=== PATIENT | female | born 1930 | race Caucasian/White ===

== ENCOUNTER 2019-01-01 16:30 | Inpatient (IN) | payer OTHER ==
[~2019-01-01] VITALS: Ht 157.5 cm; Wt 120.4 kg
[2019-01-01 17:29] LABS: BASOPHILS ABSOLUTE AUTO 0.02 K/mm3 (0.00-0.23); BASOPHILS PERCENT AUTO 0 % (0-2); EOSINOPHILS ABSOLUTE AUTO 0.01 K/mm3 (0.00-0.68); EOSINOPHILS PERCENT AUTO 0 % (0-6); Hematocrit 41.8 % (33.0-51.0); Hemoglobin 13.6 g/dL (11.5-16.0); IMMATURE GRAN ABSOLUTE AUTO 0.03 K/mm3 (0.00-0.10); IMMATURE GRAN PERCENT AUTO 0 % (0-1); LYMPHOCYTES ABSOLUTE AUTO 1.17 K/mm3 (0.84-5.20); LYMPHOCYTES PERCENT AUTO 14 % (21-46); MONOCYTES ABSOLUTE AUTO 0.58 K/mm3 (0.16-1.47); MONOCYTES PERCENT AUTO 7 % (4-13); Mean Corpuscular HGB 31.2 pg (26.0-34.0); Mean Corpuscular HGB Conc 32.5 g/dL (31.5-36.5); Mean Corpuscular Volume 96 fL (80-100); Mean Platelet Volume 11.5 fL (9.1-12.4); NEUTROPHILS PERCENT AUTO 78 % (41-73); Platelet Count 146 K/mm3 (150-400); RDW Coefficient Variation 12.6 % (11.7-14.2); RDW Standard Deviation 44.9 fL (35.1-46.3); Red Blood Cell Count 4.36 M/mm3 (3.80-5.20); White Blood Cell Count 8.21 K/mm3 (4.00-11.30)
[2019-01-01 17:33] LABS: Source, Urine Catheter
[2019-01-01 17:38] LABS: Appearance, Urine Clear (Clear); Bilirubin, Urine Neg (Neg); Blood, Urine 3+ (Neg); Color, Urine Yellow (P-Yellow); Glucose Qualitative, Urine Neg (Neg); Ketones, Urine 2+ (Neg); Leukocyte Esterase, Urine Neg (Neg); Nitrite, Urine Neg (Neg); Protein, Urine Neg (Neg); Specific Gravity, Urine 1.025 (1.003-1.022); Urobilinogen, Urine NORM (Normal)
[2019-01-01 17:39] LABS: Alanine Aminotransfer (ALT/SGP 13 U/L (12-78); Albumin, Blood 3.4 g/dL (3.4-5.0); Albumin/Globulin Ratio 0.9 (0.8-1.8); Alk Phos 66 U/L (50-136); Anion Gap 9 mmol/L (6-16); Aspartate Aminotrans (AST/SGOT 17 U/L (12-37); Bilirubin, Total 0.7 mg/dL (0.1-1.0); Blood Urea Nitrogen 26 mg/dL (8-24); CO2, Blood 25 mmol/L (21-32); Calcium, Blood 9.9 mg/dL (8.5-10.1); Chloride, Blood 106 mmol/L (98-108); Ethanol (Alcohol), Blood, Med <3 mg/dL; Globulin, Blood 3.9 g/dL (2.2-4.0); Glomerular Filtration Rate 41 (60-); Glucose, Blood 107 mg/dL (70-99); Potassium, Blood 3.7 mmol/L (3.5-5.5); Sodium, Blood 140 mmol/L (136-145); Total Protein, Blood 7.3 g/dL (6.4-8.2)
[2019-01-01 17:56] LABS: Bacteria Not Seen /hpf; Squamous Epithelial Cells Rare /hpf (Few); White Blood Cells, Urine 0-2 /hpf (0-5)
[2019-01-01 17:59] LABS: Influenza A Negative (NEGATIVE); Influenza B Negative (NEGATIVE)
--- NOTE | 2019-01-01 22:14 | NUR ---
PT ARRIVES TO ROOM ICU 8 VIA GURNEY FROM ER, 3 ER STAFF ARE NOTED ACCOMPANYING PATIENT TO ROOM SECONDARY TO INCREASED AGITATION, PT IS NOTED IMPULSIVELY ROLLING SIDE TO SIDE ON GURNEY, ATTEMPTS TO PHYSICAL SECURITY SPECIALIST MANN TUBING, ATTEMPTS TO REMOVE NASAL CANNULA WHEN APPLIED FOR SATS HIGH 80S, DOES NOT FOLLOW DIRECTIONS, DOES NOT COOPERATE WITH REDIRECTION. ROLLS SIDE TO SIDE IN BED GETTING TANGLED IN MONITORING CORDS AND OXYGEN TUBING, ORDERS OBTAINED FOR BILATERAL WRIST RESTRAINTS AND PRECEDEX GTT. LUNGS ARE CLEAR THROUGHOUT, RESP RATE HIGH 20S LOW 30S, SATS MID 90S WITH OXYGEN AT 2 L/MIN VIA NC. HRR, SINUS TACH NOTED ON MONITOR, PT IS HYPERTENSIVE WITH SBP NEAR 200 AND DBP NEAR 110 HOWEVER PT DOES NOT RELAX ARMS DURING BP ASSESSMENT AND IS ATTEMPTING TO CLIMB UP OOB OVER BED RAILS AT TIMES, NO EDEMA IS NOTED, BRISK CAP REFILL, BILAT FEET PINK, HANDS ARE PALE. ABD WITH HYPOACTIVE BOWEL TONES, SOFT, NO GRIMACING IS NOTED WITH PALPATION. MANN CATH IN PLACE DRAINING CLEAR YELLOW URINE TO GRAVITY. IV ACCESS TO BILAT UPPER ARMS NEAR SHOULDERS, 18 TO LEFT, 20 TO RIGHT.
[2019-01-02 01:02] LABS: Adenovirus Not Detected (NOT DETECT); Bordetella pertussis Not Detected (NOT DETECT); Chlamydophila pneumoniae Not Detected (NOT DETECT); Coronavirus 229E Not Detected (NOT DETECT); Coronavirus HKU1 Not Detected (NOT DETECT); Coronavirus NL63 Not Detected (NOT DETECT); Coronavirus OC43 Not Detected (NOT DETECT); Human Metapneumovirus Not Detected (NOT DETECT); Human Rhinovirus/Enterovirus Not Detected (NOT DETECT); Influenza A Not Detected (NOT DETECT); Influenza A/2009-H1 Not Detected (NOT DETECT); Influenza A/H1 Not Detected (NOT DETECT); Influenza A/H3 Not Detected (NOT DETECT); Influenza B Not Detected (NOT DETECT); Mycoplasma pneumoniae Not Detected (NOT DETECT); Parainfluenza Virus 1 Not Detected (NOT DETECT); Parainfluenza Virus 2 Not Detected (NOT DETECT); Parainfluenza Virus 3 Not Detected (NOT DETECT); Parainfluenza Virus 4 Not Detected (NOT DETECT); Respiratory Syncytial Virus Not Detected (NOT DETECT)
[2019-01-02 04:02] LABS: Albumin, Blood 2.8 g/dL (3.4-5.0); Albumin/Globulin Ratio 0.8 (0.8-1.8); Bilirubin, Total 0.7 mg/dL (0.1-1.0); Bun/Creatinine Ratio 16.5 (12.0-20.0); Calcium, Blood 8.6 mg/dL (8.5-10.1); Creatinine, Blood 1.33 mg/dL (0.40-1.00); Globulin, Blood 3.3 g/dL (2.2-4.0); Potassium, Blood 3.6 mmol/L (3.5-5.5); Total Protein, Blood 6.1 g/dL (6.4-8.2)
[2019-01-02 04:09] LABS: Hematocrit 38.1 % (33.0-51.0); Hemoglobin 12.1 g/dL (11.5-16.0); Mean Corpuscular HGB 31.6 pg (26.0-34.0); Mean Corpuscular HGB Conc 31.8 g/dL (31.5-36.5); Mean Platelet Volume 11.2 fL (9.1-12.4); Platelet Count 110 K/mm3 (150-400); RDW Coefficient Variation 12.8 % (11.7-14.2); RDW Standard Deviation 46.5 fL (35.1-46.3); Red Blood Cell Count 3.83 M/mm3 (3.80-5.20); White Blood Cell Count 5.58 K/mm3 (4.00-11.30)
[2019-01-02 04:10] LABS: Mean Corpuscular Volume 100 fL (80-100)
--- NOTE | 2019-01-02 06:10 | NUR ---
PT NEW ADMIT THIS SHIFT FOR ENCEPHALOPATHY/SEPSIS, ETIOLOGY UNCLEAR PER MD. PT DOES ANSWER TO HER NAME BUT CONTINUES TO NOT FOLLOW COMMANDS. SHE IS NO LONGER REMOVING NASAL CANNULA, PULLING AT MANN, OR REMOVING MONITORING EQUIPMENT, RESTRAINTS WERE DC'D AT 0350. SHE DOES PULL BLANKETS UP TO CHIN, SHE DOES NOT INITIATE REPOSITIONING THIS AM BUT WAS ROLLING SIDE TO SIDE EVEN WITH BILAT SOFT WRIST RESTRAINTS AFTER ARRIVAL FROM ER. SHE WAS PLACED IN BILAT WRIST RESTRAINTS SHORTLY AFTER ARRIVAL FROM ER SECONDARY TO REMOVAL OF MONITORING EQUIPMENT, PULLING AT MANN CATHETER, REMOVAL OF NASAL CANNULA AND GRASPING AT IV TUBING WITH ADDITIONAL ATTEMPTS TO GET UP OOB WHILE STATING "I NEED TO OPEN IT" SHE WOULD NOT SPECIFY WHAT IT WAS SHE NEEDED TO OPEN. LUNGS INITIALLY CLEAR WITH DIM BASES BILAT NOW WITH EXP WHEEZES SCATTERED THROUGHOUT, DISCUSSED WITH RESPIRATORY THERAPY, PT OXYGEN REQUIREMENTS HAVE NOT INCREASED THROUGHOUT THIS SHIFT AND SATS HAVE REMAINED MID 90S, RESP RATE WNL EXCEPT FOR DURING PERIODS OF AGITATION. PT INITIALLY PRESENTED IN SINUS TACH HOWEVER SHE WAS VERY AGITATED ON ARRIVAL AND THRASHING IN BED, SHE WAS NOTED TO SLOW TO HIGH 50S WITH PRECEDEX GTT WHICH WAS TITRATED DOWN AND THEN OFF AT 0500 THIS AM, PT CONTINUES MID 50S AT THIS TIME, PRESSURE IMPROVED. U-TOX ORDERED THIS AM AND MANN TUBING CLAMPED AT 0530 FOR COLLECTION.
[2019-01-02 07:24] LABS: U Amphetamine Screen Not Detected; U Barbituate Screen Not Detected; U Benzodiazapine Screen DETECTED; U Buprenorphine Screen Not Detected; U Cannabinoids Screen Not Detected; U Cocaine Screen Not Detected; U Methadone Screen Not Detected; U Methamphetamine Screen Not Detected; U Opiates Screen Not Detected; U Oxycodone Screen Not Detected; U Phencyclidine Screen Not Detected; U Propoxyphene Screen Not Detected
--- NOTE | 2019-01-02 09:26 | NUR ---
Recieved report from Nalini PRIETO. Patient is laying in bed supine sleeping and un arouasble and only reponds to pain. She is on 2L O2 via NC and sats 95%. She has 20ga IV LEI dressing intact and siet WNL's and is flushed and SL. She also has 18ga IV DANIEL dressing intact and site WNL's and is infusing NS at 75ml/hr. She has 16Fr. Cho draining to gravity clear yellow urine.
--- NOTE | 2019-01-02 09:35 | NUR ---
Patient awoke and on speaks "hey" and is grabing at lines and linen and is MAEW and strongs. She wants to pinch if she grabs you. Place back in restraints at 0930 and restarted precedx .5 mcg/kg/hr as well. She has pulled gown and all blankets off her and threw on floor. She occassionaly opens eyes but does not track or follow instructions. She remains on 2L O2 via NC and sats low 90%'s. NS continues at 75ml/hr.
--- NOTE | 2019-01-02 11:30 | NUR ---
Patient has been resting with precedex remaining at 0.5mcg/kg/hr. She continues on 2L O2 and sats low 90%'s. NS increased to 150ml/hr, new orders from Dr Robins. She did awaken briefly and said a couple words and said she was fine when asking where she thinks she is, she continues with "hey".
--- NOTE | 2019-01-02 13:30 | NUR ---
No significant changes with patient or gtt's. She has been hypertensive and am calling for PRN medication. She was awake briefly while placeing Powerglide 20ga x 10cm and went back to sleep.
--- NOTE | 2019-01-02 15:30 | NUR ---
Pateint continues to rest. Leslie nurse healthcare manager has been by to get update. Will be medicating with labatelol for Systolic 190's. no changes with gtt's or O2.
--- NOTE | 2019-01-02 17:30 | NUR ---
when rounding on patient she was awake and cooperating with care. She was able to hold conversatin clearly. I removed restraints as she was following direction. She remains on 0.5 mcg/kg/hr Precedex, NS at 150ml/hr. She remains on 2L O2 via NC and sats low 90%'s. She lays supine with HOB at 20 degress and denies wanting to be pulled up. She currently denies any pain.
--- NOTE | 2019-01-02 19:10 | NUR ---
ASSUMED CARE OF PT, BEDSIDE REPORT RECEIVED. PT IS INITIALLY DIFFICULT TO AROUSE BUT DOES RESPOND TO LOUD VERBAL AND LIGHT TOUCH STIMULI. SHE IS ABLE TO FOLLOW COMMANDS AND ANSWER SIMPLE QUESTIONS BECOMING MORE CONVERSATIONAL ASSESSMENT PROGRESSED. SHE DENIES PAIN, DENIES N/V, DENIES CP/PRESSURE, DENIES SOB/DYSPNEA. IS ABLE TO STATE THAT SHE IS IN THE HOSPITAL BUT CANNOT STATE CITY, WHEN ASKED FOR THE YEAR SHE IS ABLE TO SAY 19 BUT DOES NOT PROVIDE ANY ADDITIONAL NUMBERS WHEN ASKED. SHE DOES NOT REMEMBER REASON FOR ADMISSION AT THIS TIME. LUNGS ARE CLEAR WITH DIM BASES BILAT, SATS MID 90S WITH OXYGEN AT 2 L/MIN VIA NC, RESP RATE WNL. HRR, SINUS KENNY ON MONITOR, PER DAY SHIFT RN, PT HAS BEEN 40S-50S THROUGHOUT THE DAY, PRECEDEX AT 0.3 MCG/KG/HR AND DECREASED TO 0.2 MCG/KG/HR WILL MONITOR, PRESSURE REMAINS HYPERTENSIVE WITH SBP 140S AT THIS TIME. HYPOACTIVE BOWEL TONES NOTED, ABD SOFT, NO GRIMACING WITH PALPATION. MANN REMAINS IN PLACE DRAINING CLEAR YELLOW URINE TO GRAVITY. IV ACCESS TO LEFT SHOULDER 18 G FLUSHES WELL, DRESSING CDI SITE WNL, 20 G TO RIGHT SHOULDER INFUSING NS AT 150 ML/HR AND PRECEDEX GTT, DRESSING CDI, SITE WNL, POWERGLIDE IV TO RIGHT UPPER ARM FLUSHES WELL, SITE WNL, DRESSING CDI.
--- NOTE | 2019-01-02 20:00 | NUR ---
PT'S CAREGIVER "ABRAHAM" CALLED TO CHECK ON PT. EXPLAINED TO HER THAT WITHOUT RELEASE OF INFORMATION CONSENT STAFF CANNOT RELEASE PT INFORMATION. ABRAHAM EXPLAINED THAT PT BASELINE MENTATION IS VERY CLEAR "SHE'S VERY INTELLIGENT" STATES THAT PRIOR TO YESTERDAY'S VISIT, THAT THE LAST TIME SHE SAW FABI WAS WEDNESDAY AND SHE SEEMED TO BE IN HER USUAL STATE OF HEALTH. ABRAHAM STATES THAT IN THE LAST 2 YEARS, FABI HAS ONLY LEFT HER HOUSE TWICE. SHE STATES THAT FABI DOES NOT TAKE ANY REGULAR MEDICATIONS, THAT OCCASIONALLY SHE WILL TAKE 2 ASPIRIN FOR A HEADACHE. SHE STATES THAT FABI HAS NOT SEEN A PHYSICIAN IN YEARS. SHE STATES THAT FABI HAS "BAD KNEES" BUT OTHERWISE DOES NOT KNOW OF ANY HEALTH HISTORY. ABRAHAM DID FIND IT ODD THAT FABI WAS FREQUENTLY REPEATING A BIRD'S NAME THAT HAD APPROXIMATELY 1 YEAR AGO.
[2019-01-03 03:57] LABS: BASOPHILS ABSOLUTE AUTO 0.02 K/mm3 (0.00-0.23); BASOPHILS PERCENT AUTO 0 % (0-2); EOSINOPHILS ABSOLUTE AUTO 0.05 K/mm3 (0.00-0.68); EOSINOPHILS PERCENT AUTO 1 % (0-6); Hematocrit 36.7 % (33.0-51.0); Hemoglobin 11.9 g/dL (11.5-16.0); IMMATURE GRAN ABSOLUTE AUTO 0.04 K/mm3 (0.00-0.10); IMMATURE GRAN PERCENT AUTO 1 % (0-1); LYMPHOCYTES ABSOLUTE AUTO 0.67 K/mm3 (0.84-5.20); LYMPHOCYTES PERCENT AUTO 10 % (21-46); MONOCYTES ABSOLUTE AUTO 0.56 K/mm3 (0.16-1.47); MONOCYTES PERCENT AUTO 9 % (4-13); Mean Corpuscular HGB 32.5 pg (26.0-34.0); Mean Corpuscular HGB Conc 32.4 g/dL (31.5-36.5); Mean Corpuscular Volume 100 fL (80-100); NEUTROPHILS ABSOLUTE AUTO 5.11 K/mm3 (1.96-9.15); NEUTROPHILS PERCENT AUTO 79 % (41-73); Platelet Count 107 K/mm3 (150-400); RDW Coefficient Variation 12.7 % (11.7-14.2); RDW Standard Deviation 46.8 fL (35.1-46.3); Red Blood Cell Count 3.66 M/mm3 (3.80-5.20); White Blood Cell Count 6.45 K/mm3 (4.00-11.30)
[2019-01-03 04:14] LABS: Albumin, Blood 2.7 g/dL (3.4-5.0); Albumin/Globulin Ratio 0.8 (0.8-1.8); Bilirubin, Total 0.8 mg/dL (0.1-1.0); Bun/Creatinine Ratio 14.5 (12.0-20.0); Calcium, Blood 8.3 mg/dL (8.5-10.1); Creatinine, Blood 1.38 mg/dL (0.40-1.00); Globulin, Blood 3.6 g/dL (2.2-4.0); Potassium, Blood 3.8 mmol/L (3.5-5.5); Total Protein, Blood 6.3 g/dL (6.4-8.2)
--- NOTE | 2019-01-03 07:15 | NUR ---
ASSUMED CARE ASSUMED CARE OF PT AT 0700. REPORT RECEIVED FROM IDA CARRERO. PT SEDATED WITH PRECEDEX 0.3 MCG/KG. PT AROUSES TO VERBAL STIMULUS, OPENS EYES AND TRACKS VOICE, RESPONDS TO QUESTIONS WITH REPETITIVE "YES, YES, YES", "NO, NO, NO" TYPE OF SPEECH, APPEARS TO BE APPROPRIATE RESPONSES TO SOME QUESTIONS AND NOT OTHERS. PT STATES NO TO QUESTIONS OF PAIN, NO S/SX OF PAIN. MONITOR SHOWS SINUS KENNY WITH HR MID 50'S. LUNG SOUNDS WHEEZY AND DIMINISHED T/O, SATTING >90% ON 2L/MIN NC. RT CALLED FOR BREATHING TREATMENT. PT IS NPO FOR AMS. BT ACTIVE X4, ABDOMEN SOFT, NON-TENDER. PT HAS 16 FR TEMP MANN IN PLACE DRAINING YELLOW URINE TO GRAVITY. PT HAS POWERGLIDE TO LEI WITH NS AT 150ML/HR AND 2 PIV'S TO KIMBERLY SHOULDERS. BED ALARM ON FOR SAFETY. WILL CONTINUE TO MONITOR PT CLOSELY AND TITRATE PRECEDEX DOWN ABLE.
--- NOTE | 2019-01-03 07:26 | NUR ---
PT CONTINUES CONFUSED THIS AM, REMAINS EASILY AROUSABLE TO VERBAL STIMULI, IS ANSWERING QUESTIONS DURING BEDSIDE REPORT. PRECEDEX CONTINUES AT 0.3 MCG/KG/HR PT HEART RATE REMAINS 50S, BLOOD PRESSURE IS IMPROVED. PT DID C/O FEELING COLD NEAR MIDNOC AND WARM BLANKETS WERE PROVIDED, FOLLOWING WHICH TEMP WAS NOTED UP TO 100.5, RESOLVED TO 98.8 WITH BLANKET REMOVAL AND PT TOLERATED WELL. 8 BEAT RUN OF V-TACH AT 0332 THIS AM, PT UNABLE TO STATE IF SYMPTOMATIC AT THAT TIME. OTHERWISE NO ACUTE CHANGES.
--- NOTE | 2019-01-03 08:01 | NUR ---
DR. DAVID HERNANDEZ ROUNDED ON PT. WOULD LIKE PRECEDEX TITRATED OFF IF ABLE. MAY REPEAT HEAD CT OR ORDER EEG THIS PM. PLANS TO RE-ASSESS PT THIS PM. NO ADDITIONAL ORDERS RECEIVED AT THIS TIME.
--- NOTE | 2019-01-03 12:24 | NUR ---
NEURO RE-ASSESSMENT PRECEDEX HAS BEEN ON STANDBY SINCE APPROX 1000 THIS AM. PT AROUSES EASILY TO VERBAL STIMULUS AT THIS TIME. PT CONTINUES TO HAVE REPETETIVE SPEECH, NOT ANSWERING QUESTIONS APPROPRIATELY, NOT FOLLOWING COMMANDS. PT'S EYES OPEN SPONTANEOUSLY, APPEARS TO BE TRACKING VOICES IN THE ROOM BY TURNING HEAD BUT NOT FOCUSING AT THIS TIME AND NOT BLINKING TO THREAT APPROPRIATELY. DR HERNANDEZ NOTIFIED - STATES HE WILL COME SEE PT AND PLACE ORDERS FOR CT AND EEG.
--- NOTE | 2019-01-03 18:09 | NUR ---
FEVER/NEURO UPDATE CALL TO SLICK PARRY REGARDING PT'S TEMP 101.7. ORDERS RECEIVED FOR RECTAL TYLENOL. ALSO DISCUSSED PT'S ONGOING CONFUSION - PT HAS BEEN LOOKING UP AT THE CEILING AND APPEARS TO BE HALLUCINATING, TALKING IF HAVING CONVERSATION WITH SOMEONE. PT DOES NOT ANSWER QUESTIONS APPROPRIATELY OR FOLLOW DIRECTIONS. SOHAN STATES HE WILL CALL DR. HERNANDEZ AND DISCUSS WITH HIM RE: WHETHER TO REPEAT HEAD CT TONIGHT OR WAIT UNTIL MORNING AND WILL PLACE ORDERS IF NEEDED.
--- NOTE | 2019-01-03 18:51 | NUR ---
PT TO CT HEAD AND BACK VIA BED, ON MONITOR. TOLERATED WELL.
--- NOTE | 2019-01-03 19:20 | NUR ---
ASSUMED CARE BEDSIDE REPORT RECIEVED. PT IS AWAKE AND MOANING OUT UPON ENTERING ROOM. PT IS FIDGETING AND PULLING AT LINES/CORDS AND GOWN. PT RESPONDS TO VERBAL STIMULI BY REPETITIVELY REPEATING WORDS THAT DONT MAKE SENSE. PT IS UNABLE TO FOLLOW COMMANDS. PT IS NOT SEDATED AT THIS TIME. POWER GLIDE TO LEI C/D/I WITH NS AT 150 ML/HR. MANN IN PLACE WITH YELLOW OUTPUT NOTED. PT ON ROOM AIR, VITAL SIGNS STABLE. WILL CONTINUE TO MONITOR.
[2019-01-04 00:42] LABS: Vancomycin, Trough 18.5 ug/mL (5.0-10.0)
[2019-01-04 03:57] LABS: BASOPHILS ABSOLUTE AUTO 0.03 K/mm3 (0.00-0.23); BASOPHILS PERCENT AUTO 1 % (0-2); EOSINOPHILS ABSOLUTE AUTO 0.04 K/mm3 (0.00-0.68); EOSINOPHILS PERCENT AUTO 1 % (0-6); Hematocrit 38.1 % (33.0-51.0); Hemoglobin 12.1 g/dL (11.5-16.0); IMMATURE GRAN ABSOLUTE AUTO 0.02 K/mm3 (0.00-0.10); IMMATURE GRAN PERCENT AUTO 0 % (0-1); LYMPHOCYTES ABSOLUTE AUTO 0.74 K/mm3 (0.84-5.20); LYMPHOCYTES PERCENT AUTO 12 % (21-46); MONOCYTES ABSOLUTE AUTO 0.66 K/mm3 (0.16-1.47); MONOCYTES PERCENT AUTO 11 % (4-13); Mean Corpuscular HGB 32.1 pg (26.0-34.0); Mean Corpuscular HGB Conc 31.8 g/dL (31.5-36.5); Mean Corpuscular Volume 101 fL (80-100); Mean Platelet Volume 11.5 fL (9.1-12.4); NEUTROPHILS ABSOLUTE AUTO 4.72 K/mm3 (1.96-9.15); NEUTROPHILS PERCENT AUTO 76 % (41-73); Platelet Count 104 K/mm3 (150-400); RDW Standard Deviation 48.5 fL (35.1-46.3); Red Blood Cell Count 3.77 M/mm3 (3.80-5.20); White Blood Cell Count 6.21 K/mm3 (4.00-11.30)
[2019-01-04 04:04] LABS: Bun/Creatinine Ratio 12.8 (12.0-20.0); Calcium, Blood 8.1 mg/dL (8.5-10.1); Creatinine, Blood 1.33 mg/dL (0.40-1.00); Potassium, Blood 3.6 mmol/L (3.5-5.5)
--- NOTE | 2019-01-04 05:54 | NUR ---
SHIFT SUMMARY NO ACUTE CHANGES THIS SHIFT. PT REMAINS UNCHANGED NEUROLOGICALLY. PT AWAKE THROUGHOUT THE NIGHT LOOKING AT THE CEILING AND OCCASIONALLY MOANING OUT. PT UNABLE TO FOLLOW COMMANDS. PT PLACED IN SBW RESTRAINTS DUE TO CONTINUED PULLING AT LINES/TUBES. VITAL SIGNS HAVE REMAINED STABLE, PT ON ROOM AIR. NS INFUSING AT 150 ML/HR WITH ABX IVPB THROUGHOUT THE SHIFT. PG TO LEI C/D/I. MANN IN PLACE WITH GOOD URINE OUTPUT. WILL CONTINUE TO MONITOR AND REPORT OFF TO ONCOMING RN.
--- NOTE | 2019-01-04 07:31 | NUR ---
ASSUMED CARE ASSUMED CARE OF PT AT 0700. REPORT RECEIVED FROM IDA PARRY. PT AROUSES TO VERBAL STIMULUS, OPENS EYES AND LOOKS AROUND ROOM. PT NOT FOLLOWING ANY COMMANDS, NOT ANSWERING ANY QUESTIONS APPROPRIATELY, OCCASIONALLY WILL STATE A RANDOM PHRASE OF WORDS SUCH "OH HI COLD". PT PULLING AT MONITOR WIRES AND IV TUBING. SOFT KIMBERLY WRIST RESTRAINTS IN PLACE TO PROTECT LINES, TUBES. MONITOR SHOWS SINUS RHYTHM WITH HR 70'S, BP ELEVATED WITH SYSTOLIC 180 THIS AM, TEMP 99.0. PT HAS MANN CATH IN DRAINING YELLOW URINE TO GRAVITY. POWERGLIDE TO LEI WITH NS AT 150ML/HR. WILL CONTINUE TO MONITOR PT CLOSELY.
--- NOTE | 2019-01-04 08:00 | NUR ---
DR. DAVID HERNANDEZ ROUNDED ON PT. PLAN TO CHANGE IV FLUIDS R/T HIGH SODIUM AND RE-CHECK LABS THIS AFTERNOON. CONTINUE TO HOLD SEDATING MEDICATIONS AT THIS TIME. PT CAN BE TRANSFERRED TO PCU.
--- NOTE | 2019-01-04 12:00 | NUR ---
RECEIVED REPORT FROM IDA SINGER, AND ASSUMED CARE OF PT.
--- NOTE | 2019-01-04 12:16 | NUR ---
HANDOFF REPORT GIVEN TO IDA LOCKETT TO ASSUME CARE OF PT AT THIS TIME.
--- NOTE | 2019-01-04 12:31 | NUR ---
ASSUMED CARE/NURSING SUMMARY AWAKE, ALERT, NOT FOLLOWING COMMANDS, DOES NOT ANSWER QUESTIONS, RESTRAINTS IN PLACE, CHECKED RESTRAINTS/CIRCULATION, EEG PLACING PROBES ON PT'S HEAD, PT ATTEMPTING TO REACH UP TO PULL LINES/TUBES/PROBES. SR ON MONITOR, HR 90'S, HYPERTENSIVE, 179/99, MEDICATED WITH LABETOLOL 10 MG IVP, STARTED AZITHROMYCIN, RECEIVING 1/2 NS AT 200 ML HR FOR 1 BAG. RESPIRATORY AT BEDSIDE TO DRAW ABG, UNABLE TO OBTAIN, HAD ORDER CHANGED TO [facility], AWAITING LAB TO COME DRAW. MANN IN PLACE DRAINING YELLOW URINE. REPOSITIONED PT TO SUPINE, HOB 30 DEG, IN PREPARATION FOR EEG. LUNGS WITH WHEEZING, DIMINISHED THROUGHOUT, HARSH COUGH, NON-PRODUCTIVE, SATS > 93% ON ROOM AIR. NOTED BRUISE TO [place]/LEG. POWERGLIDE TO LEI.
--- NOTE | 2019-01-04 12:31 | NUR ---
EEG AT BEDSIDE.
[2019-01-04 14:23] LABS: Bicarbonate Venous 19.8 mmol/L (24.0-30.0); PCO2 Venous 39.6 mmHg (38-42); PO2 Venous 32.3 mmHg (38-42); pH Blood Venous 7.33 (7.34-7.37)
[2019-01-04 14:24] LABS: Base Excess Venous -5.2 mmol/L
[2019-01-04 15:17] LABS: Creatinine, Blood 1.21 mg/dL (0.40-1.00); Potassium, Blood 3.3 mmol/L (3.5-5.5)
--- NOTE | 2019-01-04 16:05 | NUR ---
CALLED DR. HERNANDEZ RE: K = 3.3, NEW ORDER FOR POTASSIUM CHLORIDE 40 MEQS IVPB.
--- NOTE | 2019-01-04 19:45 | NUR ---
ASSUMED CARE REPORT RECIEVED. PT IS LAYING IN BED, PULLING AT GOWN AND BEDDING. PT IS AWAKE, CONFUSED, AND NOT FOLLOWING COMMANDS. PT WITH SBW RESTRAINTS IN PLACE. VITAL SIGNS STABLE, PT ON ROOM AIR. PG TO LEI C/D/I WITH D5 INFUSING AT 200 ML/HR. MANN IN PLACE WITH DARK YELLOW OUTPUT NOTED. WILL CONTINUE TO MONITOR.
[2019-01-05 04:50] LABS: BASOPHILS ABSOLUTE AUTO 0.02 K/mm3 (0.00-0.23); BASOPHILS PERCENT AUTO 0 % (0-2); EOSINOPHILS ABSOLUTE AUTO 0.07 K/mm3 (0.00-0.68); EOSINOPHILS PERCENT AUTO 1 % (0-6); Hematocrit 39.1 % (33.0-51.0); Hemoglobin 12.4 g/dL (11.5-16.0); IMMATURE GRAN ABSOLUTE AUTO 0.03 K/mm3 (0.00-0.10); IMMATURE GRAN PERCENT AUTO 0 % (0-1); LYMPHOCYTES ABSOLUTE AUTO 0.62 K/mm3 (0.84-5.20); LYMPHOCYTES PERCENT AUTO 8 % (21-46); MONOCYTES ABSOLUTE AUTO 0.77 K/mm3 (0.16-1.47); MONOCYTES PERCENT AUTO 10 % (4-13); Mean Corpuscular HGB Conc 31.7 g/dL (31.5-36.5); Mean Corpuscular Volume 101 fL (80-100); NEUTROPHILS ABSOLUTE AUTO 6.62 K/mm3 (1.96-9.15); NEUTROPHILS PERCENT AUTO 81 % (41-73); RDW Standard Deviation 48.7 fL (35.1-46.3); Red Blood Cell Count 3.88 M/mm3 (3.80-5.20); White Blood Cell Count 8.13 K/mm3 (4.00-11.30)
[2019-01-05 04:53] LABS: Mean Platelet Volume 11.4 fL (9.1-12.4); Platelet Count 97 K/mm3 (150-400)
[2019-01-05 05:05] LABS: Bun/Creatinine Ratio 13.1 (12.0-20.0); Calcium, Blood 8.3 mg/dL (8.5-10.1); Creatinine, Blood 1.22 mg/dL (0.40-1.00); Potassium, Blood 3.6 mmol/L (3.5-5.5)
--- NOTE | 2019-01-05 05:47 | NUR ---
SHIFT SUMMARY NO ACUTE CHANGES THIS SHIFT. PT REMAINS CONFUSED, AND UNCHANGED NEUROLOGICALLY SINCE START OF SHIFT. PT REMAINS IN SBW RESTRAINTS. PT RESTLESS AT TIMES. VITAL SIGNS STABLE. PT ON ROOM AIR. NS INFUSING AT 150 ML/HR. MANN REMAINS IN [place] WITH DARK YELLOW OUTPUT NOTED. WILL CONTINUE TO MONITOR AND REPORT OFF TO ONCOMING RN.
--- NOTE | 2019-01-05 09:43 | NUR ---
PT JUST CLEANED UP FROM STOOLING THAT IS LOOSE BUT RECTAL TUBE WILL NOT YET BE APPROPRIATE. PT IS FREQUENTLY MOVING ALL EXT. WITH BP ELEVATED NOTED AND RR RATE MID TO UPPER 20'S RANGE. PT IS NON-VERBAL AND NO HINT OF FOLLOWING ANY COMMANDS.
--- NOTE | 2019-01-05 12:27 | NUR ---
PT HAS STOOLED AGAIN AND CLEANED. BP ELEVATED BUT FENT IVP GIVEN TO EVALUATE FOR AXIETY/PAIN ISSUES HR IS MID 70 RANGE.
--- NOTE | 2019-01-05 15:37 | NUR ---
1450 NICARDIPINE GTT STARTED BUT IV SITE L SHOULDER NOTED TO BE BAD. CHANGED BACK TO LEI POWREGLIDE AND CLINIMIX BRUCE ANDERSON. ARE ON HOLD FOR NOW.
--- NOTE | 2019-01-05 19:30 | NUR ---
PT HAS RESTED WELL AND IS CURRENTLY CALM AND O2 AT 2L FOR SATS 88-90 RANGE. NICARDIPINE GTT WAS TITRATED FROM 4 DOWN TO 1MG BEFORE REPORT WAS GIVEN AND VS NOTED, WITH BP SOMEWHAT LABILE. I/O NOTED. CLINIMIX AT 100ML, AND FAT EMUL. INFUSING AT 25ML.
--- NOTE | 2019-01-05 19:30 | NUR ---
ASSUMED CARE BEDSIDE REPORT RECIEVED. PT IS RESTING IN BED QUIETLY AT THIS TIME. PT APPEARS CALM AND COMFORTABLE. PT IS UNABLE TO FOLLOW COMMANDS AND ONLY MOANS OUT WORDS OCCASIONALLY. PT WITH SBW RESTRAINTS IN PLACE. PT ON 2L O2 NC. VITAL SIGNS STABLE WITH NICARDIPINE GTT AT 2 MG/HR. CLINIMIX AND FAT EMULSION INFUSING. POWER GLIDE TO LEI AND DANIEL C/D/I. MANN IN PLACE WITH YELLOW OUTPUT NOTED. WILL CONTINUE TO MONITOR.
[2019-01-06 00:49] LABS: Vancomycin, Trough 23.3 ug/mL (5.0-10.0)
[2019-01-06 04:27] LABS: Albumin, Blood 2.7 g/dL (3.4-5.0); Albumin/Globulin Ratio 0.8 (0.8-1.8); Bilirubin, Total 0.3 mg/dL (0.1-1.0); Bun/Creatinine Ratio 16.7 (12.0-20.0); Calcium, Blood 8.3 mg/dL (8.5-10.1); Creatinine, Blood 1.14 mg/dL (0.40-1.00); Globulin, Blood 3.5 g/dL (2.2-4.0); Phosphorus, Blood 2.4 mg/dL (2.5-4.9); Potassium, Blood 3.4 mmol/L (3.5-5.5); Total Protein, Blood 6.2 g/dL (6.4-8.2)
--- NOTE | 2019-01-06 06:07 | NUR ---
SHIFT SUMMARY NO ACUTE CHANGES THIS SHIFT. PT HAS REMAINED UNCHANGED NEUROLOGICALLY. PT IS UNABLE TO FOLLOW COMMANDS AND IS RESTLESS/FIDGETING. PT CALMS WITH PRN FENTANYL. PT REMAINS HYPERTENSIVE, NICARDIPINE GTT AT 5 MG/HR. CLINIMIX INFUSING AT 100 ML/HR. POWER GLIDES TO DANIEL AND LEI C/D/I. PT ON 2L O2 NC. MANN IN PLACE WITH GOOD URINE OUTPUT NOTED. SBW RESTRAINTS REMAIN IN PLACE. WILL CONTINUE TO MONITOR AND REPORT OFF TO ONCOMING RN.
[2019-01-06 07:15] LABS: Vancomycin, Random 22.6 ug/mL
--- NOTE | 2019-01-06 07:21 | NUR ---
ASSUMED CARE ASSUMED CARE OF PT AT 0700. REPORT RECEIVED FROM IDA PARRY. PT IN BED, RESTLESS, CONFUSED. PT STATING "SCISSORS, CUT THIS, I DON'T KNOW". PULLING AGAINTS RESTRAINTS. BREATHING APPEARS LABORED. LUNG SOUNDS DIMINISHED. SPO2 96% ON 2L/MIN NC. PT MED c 25MCG FENTANYL PUSH, SETTLES DOWN, APPEARS MORE COMFORTABLE. MONITOR SHOWS SINUS RHYTHM WITH HR 90'S, BP ELEVATED TO 190'S SYSTOLIC BUT DECREASES TO 170'S WITH FENTANYL. NICARDIPINE GTT INFUSING AT 5MG/HR. ABDOMEN ROUND, FIRM, DISTENDED. BT'S HYPERACTIVE T/O. PT HAS MANN CATHETER IN PLACE DRAINING YELLOW URINE TO GRAVITY. PT HAS POWERGLIDES TO KIMBERLY UPPER ARMS. CLINIMIX INFUSING AT 100ML/HR. KIMBERLY SOFT WRIST RESTRAINTS IN PLACE TO PROTECT LINES, TUBES. WILL CONTINUE TO MONITOR PT.
--- NOTE | 2019-01-06 08:15 | NUR ---
DR. DAVID HERNANDEZ ROUNDED ON PT. PLAN FOR REPEAT HEAD IMAGING. PLAN FOR NG TUBE PLACEMENT FOR PO MEDICATIONS. PLAN TO CONSULT DR. CALLAHAN FOR FURTHER INPUT.
--- NOTE | 2019-01-06 12:43 | NUR ---
FAMILY CALL FROM PT'S SISTER, ADELA. SHE STATES THAT THE PT HAS 4 CHILDREN OF WHICH NONE OF THEM ARE IN CONTACT WITH THE PT AND HAVEN'T BEEN FOR YEARS. SHE STATES THAT SHE IS THE ONLY ONE THAT HAS HAD ANY CONTACT WITH THE PATIENT FOR MANY YEARS AND SHE WOULD LIKE TO BE THE DECISION MAKER FOR THE PATIENT.
--- NOTE | 2019-01-06 15:50 | NUR ---
PT DOWN TO IMAGING FOR CT AND CTA. PT AGITATED AND RESTLESS T/O TRANSPORT, HOLLERING OUT "HELP ME, HELP ME". PT NOT RE-DIRECTABLE OR RE-ORIENTABLE.
--- NOTE | 2019-01-06 16:04 | NUR ---
Met with nursing and patient caregiver. pt in restraint with pateinmadisyn WAYNE. Pt calling out flushed anme aggitation and labored breathing with stimulus. REview with caregiver plan of care. Inna relays that pt was functional and independent an this was asudden event. Pt has children that she is astranged from. Caregiver states her only support is her sister who calls regularly and comes to visit when she can. entry level buyer states she has a son possibly in the area they aren not sure. pt does not have contact because he is an uncontrolled bipolar not under treatment and has not interacted with him in years. Pt is DNR no POLST or AD. Hospitalist in to review plan of care with caregiver and prognosis. Goal at this point is to provide curative care and hope is rehab. NO CPR and NO intubation. physician requested ethics consult due to no spouse and no children involved. updated transitional care nurse pt has rn case mgr and may need rehab and aadvised that sister notified and agreed to be decision maker. Pt care navigator has agreed to be of help and visit and to update patients sister and be a support to her decisional process.
--- NOTE | 2019-01-06 17:28 | NUR ---
TACHYCARDIA/RHYTHM CHANGE PT BOUNCING IN AND OUT OF NSR/A. FIB RVR WITH RATE UP TO 150-160. DR CALLAHAN NOTIFIED. 5MG IVP METOPROLOL ADMINISTERED. CURRENTLY A.FIB IN LOW 'S. WILL CONTINUE TO MONITOR.
--- NOTE | 2019-01-06 18:05 | NUR ---
SHIFT SUMMARY PT REMAINS CONFUSED, HOLLERING OUT WITH CARE. KIMBERLY SOFT WRIST RESTRAINTS REMAIN IN PLACE TO PROTECT LINES/TUBES. NG TUBE WAS PLACED TO Rito MAE THIS AFTERNOON FOR MEDICATION ADMINISTRATION. PT HAS KIMBERLY UPPER ARM POWERGLIDES. NICARDIPINE GTT CONTINUES, CURRENTLY AT 7.5MG/HR TO MAINTAIN GOAL SBP OF ~165-175. CLINIMIX INFUSING AT 100ML/HR AND LIPID EMULSION AT 25ML/HR. PT WAS GIVEN IV METOPROLOL PUSH X1 FOR RAPID A FIB, CURRENTLY HR 70-90'S, REMAINS IN A FIB. DR LONDON MANN CONTINUES TO DRAIN YELLOW URINE TO GRAVITY. WILL CONTINUE TO MONITOR PT AND GIVE HANDOFF REPORT TO ONCOMING RN WHEN AVAILABLE.
--- NOTE | 2019-01-06 19:58 | NUR ---
DR. CALLAHAN AT BEDSIDE FOR PT ASSESSMENT. PT SCREAMING T/O ASSESMENT AND IS NOT CONSOLEABLE. PT REPOSITIONED FOR COMFORT WITH DR. CALLAHAN ASSISTING. PT CONTINUES TO REPEAT CHATTER/YELLING NON-SENSICAL VERBAGE. WILL REVIEW NEW ORDERS.
--- NOTE | 2019-01-06 22:37 | NUR ---
LOVENOX VERIFIED PER PHARMACY. DR. CALLAHAN SPOKE WITH PHARMACY AND VERIFIED DOSING OF LOVENOX. SEE ORDER.
--- NOTE | 2019-01-06 22:38 | NUR ---
PT BECOMING MORE CONSOLABLE AFTER BEGINNING OF PRECEDEX. PT ACTUALLY TOLERATED ORAL CARE AND LIP BALM APPLICATION.
--- NOTE | 2019-01-06 22:59 | NUR ---
RHYTHM CONVERSION: PRECEDEX TITRATION PT CONVERTED BACK TO NSR HR 60'S. PRECEDEX: STARTED AT 0.2mcg/kg/hr THEN TO 0.1mcg/kg/hr, NOW IS PAUSED WITH PT SLEEPING SOUNDLY AND RHYTHM CONVERTING BACK TO NSR WITH HR 60'S.
[2019-01-07 03:36] LABS: BASOPHILS ABSOLUTE AUTO 0.03 K/mm3 (0.00-0.23); BASOPHILS PERCENT AUTO 1 % (0-2); EOSINOPHILS ABSOLUTE AUTO 0.16 K/mm3 (0.00-0.68); EOSINOPHILS PERCENT AUTO 3 % (0-6); Hematocrit 32.5 % (33.0-51.0); Hemoglobin 10.5 g/dL (11.5-16.0); IMMATURE GRAN ABSOLUTE AUTO 0.03 K/mm3 (0.00-0.10); IMMATURE GRAN PERCENT AUTO 1 % (0-1); LYMPHOCYTES ABSOLUTE AUTO 0.66 K/mm3 (0.84-5.20); LYMPHOCYTES PERCENT AUTO 11 % (21-46); MONOCYTES ABSOLUTE AUTO 0.54 K/mm3 (0.16-1.47); MONOCYTES PERCENT AUTO 9 % (4-13); Mean Corpuscular HGB 32.1 pg (26.0-34.0); Mean Corpuscular HGB Conc 32.3 g/dL (31.5-36.5); Mean Corpuscular Volume 99 fL (80-100); Mean Platelet Volume 10.8 fL (9.1-12.4); NEUTROPHILS PERCENT AUTO 76 % (41-73); Platelet Count 98 K/mm3 (150-400); RDW Coefficient Variation 13.2 % (11.7-14.2); RDW Standard Deviation 48.5 fL (35.1-46.3); Red Blood Cell Count 3.27 M/mm3 (3.80-5.20); White Blood Cell Count 5.82 K/mm3 (4.00-11.30)
[2019-01-07 03:53] LABS: Albumin, Blood 2.2 g/dL (3.4-5.0); Anion Gap 4 mmol/L (6-16); Blood Urea Nitrogen 30 mg/dL (8-24); Bun/Creatinine Ratio 25.4 (12.0-20.0); CO2, Blood 26 mmol/L (21-32); Calcium, Blood 8.1 mg/dL (8.5-10.1); Chloride, Blood 117 mmol/L (98-108); Creatinine, Blood 1.18 mg/dL (0.40-1.00); Glomerular Filtration Rate 46 (60-); Glucose, Blood 117 mg/dL (70-99); Magnesium, Blood 2.1 mg/dL (1.6-2.4); Potassium, Blood 3.5 mmol/L (3.5-5.5); Sodium, Blood 147 mmol/L (136-145); Triglycerides 99 mg/dL (30-160); Troponin I 0.155 ng/mL (0.000-0.040)
--- NOTE | 2019-01-07 04:01 | NUR ---
PRECEDEX TITRATE: PRECEDEX TITRATED T/O NOC BETWEEN 0.1-0.3 mcg/kg/hr CURRENTLY RUNNING AT 0.2mcg/kg/hr. PT RESTING QUIETLY. VSS.
--- NOTE | 2019-01-07 05:54 | NUR ---
DR. CALLAHAN PAGER CALLED TO REPORT LAB VALUES
--- NOTE | 2019-01-07 06:01 | NUR ---
DR. CALLAHAN: NOTIFIED RE: TROPONIN 0.155. NO NEW ORDERS OR FURTHER INQUIRIES AT THIS TIME.
--- NOTE | 2019-01-07 07:47 | NUR ---
ASSUMED CARE: PT RESTING IN BED, BILATERAL WRIST RESTRAINTS IN PLACE DUE TO AGITATION AND CONFUSION. CURRENTLY RECEIVING PRECEDEX AT 0.1MCG/KG/MIN. PT APPEARS ANXIOUS AND FEARFUL. ANSWERS WHEN NAME IS CALLED BUT DOES NOT RESPOND WHEN OTHER QUESTIONS ASKED, APPEARS TO BE THINKING ABOUT ANSWERS HOWEVER. NG IN PLACE, CLAMPED. MANN IN PLACE FOR STRICT I AND O, DRAINING YELLOW. SATTING MID 90S RA. NO FURTHER NEEDS OR CONCERNS AT THIS TIME.
--- NOTE | 2019-01-07 11:36 | NUR ---
WHILE GIVING PT BEDBATH, SHE CALLED OUT "ABRAHAM" OVER AND OVER. ATTEMPTED TO REORIENT AND ASSIST PT WITH CALMING BUT SHE CONTINUED TO CALL OUT AND PUSH AGAINST STAFF WHEN TRYING TO REPOSITION. THIRD STAFF MEMBER REQUIRED DUE TO PT RESISTANCE. WHEN REPOSITION WAS COMPLETE, PT SAID "I'M COLD" OVER AND OVER AND WAS PROVIDED WITH WARM BLANKET. THEN SHE STARTED SAYING "THANK YOU" OVER AND OVER. PRECEDEX OFF AT THIS TIME.
--- NOTE | 2019-01-07 11:49 | NUR ---
echocardiogram complete
--- NOTE | 2019-01-07 16:37 | NUR ---
PT BEGAN CALLING OUT AND BECOMING AGITATED WHEN TOUCHED, EVEN JUST TO SCAN ARM BAND. BLOOD PRESSURE ELEVATED WITH AGITATION, PRECEDEX RESTARTED.
--- NOTE | 2019-01-07 18:10 | NUR ---
SHIFT SUMMARY: PT RESTING IN BED, RESTRAINTS REMAIN TO BILATERAL WRISTS DUE TO THE RISK OF REMOVING LINES AND TUBES. SHE WAS OFF THE PRECEDEX MAJORITY OF DAY BUT IT WAS RESTARTED AT 0.3MCG/KG/MIN DUE TO INCREASED AGITATION, CALLING OUT ETC. HAS HAD A FEW VISITORS THIS SHIFT. PLAN IS POSSIBLE LUMBAR PUNCTURE TOMORROW PENDING DR CALLAHAN'S JUDGEMENT.
--- NOTE | 2019-01-07 19:26 | NUR ---
ABRAHAM DONG-CAREGIVER CALLED: ABRAHAM CALLED AND GIVEN UPDATE. ABRAHAM STATED THAT PATIENT DOES NOT AND HAS NEVER DRINKS ALCOHOL NOR SMOKED. ABRAHAM HAS PT'S ANIMALS (BIRDS AND GUINNEY PIG). ABRAHAM WILL BE IN TO SEE PATIENT WEDNESDAY (01/08/19).
--- NOTE | 2019-01-07 20:00 | NUR ---
PRECEDEX TITRATED OFF TO FURTHER ASSESS PATIENT NEURO STATUS.
--- NOTE | 2019-01-07 20:51 | NUR ---
WITH PRECEDEX OFF PT RETURNED TO YELLING OUT AND SLAPPING AT NURSE'S HAND WHEN TRYING TO ASSESS NEURO. PT DID SAY CLEARLY, "I'M SO COLD" AND WHEN RECOVERED STATED, "THAT FEELS GOOD". PT WOULD NOT TRACK TO VOICE NOR TO LIGHT. PUPIL REMAIN 2mm AND SLUGGISH. PT REPEATED, "ABRAHAM, ABRAHAM, ABRAHAM" BUT SEEMED TO LISTEN WHEN TOLD THAT ABRAHAM HAD PT'S BIRDS AND LITTLE MAN (G, PIG). PT STEADILY BECAME MORE ANXIOUS AND RESTLESS, PRECEDEX STARTED AGAIN AT 0.2 mcg/kg/hr. WILL CONTINUE TO MONITOR.
--- NOTE | 2019-01-07 22:31 | NUR ---
DR. CALLAHAN NOTIFIED: DURING PT'S 2199 TURNING AND YOSELIN CARE, PT'S COMPLETE LUNG SOUNDS WITH COARSE T/O ON RIGHT, COARSE WITH LLL EXP WHEEZE. TWO NEW PENCIL SIZE BLISTERS NOTICED:ONE ON LEFT MID BACK AND THE OTHER NOTED TO PT'S LEFT [place]-NEITHER BROKEN OR WHEEPING. PT WITH VERY DARK, SOFT-SOMEWHAT JELLY-LIKE STOOL. UPDATED ON PT'S NEURO STATUS ON AND OFF PRECEDEX. NO NEW ORDERS AT THIS TIME. CONTINUE TO OBSERVE AND MONITOR.
[2019-01-07 23:37] LABS: Stool Occult Bld Immuno 1 Negative (NEGATIVE)
[2019-01-08 00:23] LABS: C DIFFICILE BY DNA AMP Positive (Negative)
[2019-01-08 04:14] LABS: BASOPHILS ABSOLUTE AUTO 0.03 K/mm3 (0.00-0.23); BASOPHILS PERCENT AUTO 1 % (0-2); EOSINOPHILS ABSOLUTE AUTO 0.18 K/mm3 (0.00-0.68); EOSINOPHILS PERCENT AUTO 3 % (0-6); Hematocrit 34.3 % (33.0-51.0); Hemoglobin 10.9 g/dL (11.5-16.0); IMMATURE GRAN ABSOLUTE AUTO 0.04 K/mm3 (0.00-0.10); IMMATURE GRAN PERCENT AUTO 1 % (0-1); LYMPHOCYTES ABSOLUTE AUTO 0.74 K/mm3 (0.84-5.20); LYMPHOCYTES PERCENT AUTO 13 % (21-46); MONOCYTES ABSOLUTE AUTO 0.61 K/mm3 (0.16-1.47); MONOCYTES PERCENT AUTO 11 % (4-13); Mean Corpuscular HGB 31.4 pg (26.0-34.0); Mean Corpuscular HGB Conc 31.8 g/dL (31.5-36.5); Mean Corpuscular Volume 99 fL (80-100); Mean Platelet Volume 12.7 fL (9.1-12.4); NEUTROPHILS ABSOLUTE AUTO 4.17 K/mm3 (1.96-9.15); NEUTROPHILS PERCENT AUTO 72 % (41-73); Platelet Count 137 K/mm3 (150-400); RDW Coefficient Variation 14.5 % (11.7-14.2); RDW Standard Deviation 51.7 fL (35.1-46.3); Red Blood Cell Count 3.47 M/mm3 (3.80-5.20); White Blood Cell Count 5.77 K/mm3 (4.00-11.30)
[2019-01-08 05:40] LABS: Albumin, Blood 2.2 g/dL (3.4-5.0); Anion Gap 5 mmol/L (6-16); Blood Urea Nitrogen 27 mg/dL (8-24); Bun/Creatinine Ratio 21.3 (12.0-20.0); CO2, Blood 24 mmol/L (21-32); Calcium, Blood 8.3 mg/dL (8.5-10.1); Chloride, Blood 115 mmol/L (98-108); Creatinine, Blood 1.27 mg/dL (0.40-1.00); Glomerular Filtration Rate 42 (60-); Glucose, Blood 112 mg/dL (70-99); Sodium, Blood 144 mmol/L (136-145)
--- NOTE | 2019-01-08 07:30 | NUR ---
ASSUMED CARE: PT RESTING QUIETLY AT THIS TIME. PRECEDEX RUNNING AT 0.25MG/KG/MIN. COUGH NOTED THAT SOUNDS BARK LIKE. NO ACUTE DISTRESS NOTED AT THIS TIME
--- NOTE | 2019-01-08 09:30 | NUR ---
DR CALLAHAN AT BEDSIDE, AWARE OF PT'S GASPING BREATHS AT TIMES AND SHALLOW BREATHING. DR STATED THAT SINCE PT IS SATTING WELL AND DNR STATUS, WILL CONTINUE TO MONITOR. ASKED ABOUT CPT FOR PT DUE TO CONGESTED COUGH. ALSO DISCUSSED FACT THAT PRECEDEX IS CURRENTLY RUNNING AND DISCUSSED OPTIONS FOR PRNS IN ORDER TO TITRATE DOWN. DR CALLAHAN STATES HE WILL REVIEW. SEE NEW ORDERS
--- NOTE | 2019-01-08 12:00 | NUR ---
DISCUSSED ABG RESULTS WITH DR CALLAHAN WELL HER GASPING RESPIRATIONS. STATED HE IS OK WITH HER O2 AT 88% OR HIGHER. STATES THAT HE FEELS RESPIRATORY PATTERN IS DUE TO THE ENCEPHALOPATHY
--- NOTE | 2019-01-08 12:06 | NUR ---
DR CALLAHAN AWARE THAT PT'S O2 DEMAND INCREASING FROM 3 TO 5L. PT ALSO APPEARS TO BE GASPING MORE WITH RESPIRATIONS ORDER FOR ABG WHICH HAS BEEN COMPLETED BY RN ASSISTING RT WITH HOLDING PT'S ARM STILL.
[2019-01-08 12:10] LABS: PCO2 Arterial 46.1 mmHg (35-45); PO2 Arterial 78.5 mmHg (80-100); pH Blood Arterial 7.34 (7.35-7.45)
--- NOTE | 2019-01-08 15:30 | NUR ---
LUMBAR PUNCTURE COMPLETED. FOUR NURSES REQUIRED TO HOLD PT IN PLACE. PRECEDEX AT 0.7 DURING PROCEDURE AND PREMEDICATED WITH 25 MCG FENTANYL. NONREBREATHER IN PLACE FOR PROCEDURE. AFTER COMPLETED, ORAL CARE DONE. PT'S BREATH SOUNDS BECAME STRIDOROUS. DR CALLAHAN MADE AWARE AND CAME TO BEDSIDE. HE DISCUSSED CASE FURTHER WITH PT'S CAREGIVER AT BEDSIDE. RT IN ROOM, BREATHING TX PROVIDED.
[2019-01-08 16:21] LABS: Glucose, CSF 62 mg/dL (40-70)
--- NOTE | 2019-01-08 16:36 | NUR ---
POST BREATHING TX PT'S RESPIRATIONS APPEAR IMPROVED. PT STILL SOUNDING GASPY BUT APPEARS MUCH MORE COMFORTABLE. PRECEDEX AT 0.4 MCG/KG/MIN AT THIS TIME.
[2019-01-08 18:04] LABS: Cryptococcus Neoformans/Gattii Not Detected (NOT DETECT); Enterovirus Not Detected (NOT DETECT); Escherichia Coli K1 Not Detected (NOT DETECT); Haemophilus Influenza Not Detected (NOT DETECT); Herpes Simplex Virus 1 Not Detected (NOT DETECT); Herpes Simplex Virus 2 Not Detected (NOT DETECT); Human Herpesvirus 6 Not Detected (NOT DETECT); Human Parechovirus Not Detected (NOT DETECT); Listeria Monocytogenes Not Detected (NOT DETECT); Neisseria Meningitidis Not Detected (NOT DETECT); Streptococcus Agalactiae Not Detected (NOT DETECT); Streptococcus Pneumoniae Not Detected (NOT DETECT); Varicella Zoster Virus Not Detected (NOT DETECT)
[2019-01-08 18:30] LABS: Appearance, CSF Hazy (Clear); Color, CSF Pink (No Color)
[2019-01-08 18:31] LABS: Automated CSF RBC Count 0.003 M/mm3 (0-0); Automated CSF WBC Count 0.003 K/mm3 (0-5); RBC Count, CSF 3000 /mm3 (0-0); WBC Count, CSF 3 /mm3 (0-5)
[2019-01-08 18:32] LABS: Appearance, CSF Hazy (Clear); Automated CSF RBC Count 0.003 M/mm3 (0-0); Automated CSF WBC Count 0.007 K/mm3 (0-5); Color, CSF Pink (No Color); RBC Count, CSF 3000 /mm3 (0-0); WBC Count, CSF 7 /mm3 (0-5)
--- NOTE | 2019-01-08 18:40 | NUR ---
SHIFT SUMMARY: AFTER LUMBAR PUNCTURE, PT BECAME STRIDOROUS AND WAS GIVEN A DUONEB TREATMENT. RESPIRATORY STATUS APPEARS IMPROVED WITH LESS GASPING AND MOANING NOTED. PT'S PRECEDEX DECREASED TO 0.3 MCG/KG/MIN. RESTING QUIETLY, SATTING MID 90S WITH NC IN MOUTH. CAREGIVER CAME BY TO VISIT A FEW TIMES THIS SHIFT AND WAS UPDATED ON CONDITION BY DR CALLAHAN. NO FURTHER NEEDS OR CONCERNS AT THIS TIME.
[2019-01-08 18:51] LABS: Lymphocytes, CSF 37 % (40-80); Monocytes, CSF 7 % (15-45); Neutrophils, CSF 56 % (0-6)
--- NOTE | 2019-01-08 18:59 | NUR ---
POLST form on chart has been signed up . Form faxed to medical records and [place] POLST registry. Copy and original POLST placed back in chart. Pt is currently sleeping and appears comfortable at this time. She had a LP procedure earlier in the day today. Nursing reports caregiver was here earlier, no visitors in the room currently. PC will continue to follow for symptom management.
[2019-01-08 19:03] LABS: Lymphocytes, CSF 54 % (40-80); Monocytes, CSF 9 % (15-45); Neutrophils, CSF 37 % (0-6)
--- NOTE | 2019-01-09 01:25 | NUR ---
START OF SHIFT/CPT: ASSUMED CARE AT CHANGE OF SHIFT. REPORT FROM LESLI RN. PT LYING IN BED QUIET. VSS. PRECEDES GTT AT 0.3mcg/kg/hr. DURING ASSESSMENTS AND PT CARE, PT NOT YELLING OUT BEFORE. PT ACTUALLY TURN HER HEAD AND LOOKED AT THIS RN WHEN CALLED HER NAME AND SAID, "HEY" BACK TO THIS RN AND THEN REPEATED, "IT'S COLD, IT'S COLD". PT GIVEN WARM BLANKETS AND ALL EXTREM ELEVATED ON PILLOWS. PT WITH PRODUCTIVE COUGH AND WILL SWALLOW WHEN ORAL CARE PROVIDED WITH WATER AND SPONGE. PT HAS TOLERATED ALL CARE THUS FAR AND HAS ALSO TOLERATED CPT VEST BEING PUT ON AND IS TOLERATING CPT WELL WITH NO AGITATION. WILL CONTINUE TO MONITOR.
[2019-01-09 03:33] LABS: BASOPHILS ABSOLUTE AUTO 0.02 K/mm3 (0.00-0.23); BASOPHILS PERCENT AUTO 0 % (0-2); EOSINOPHILS ABSOLUTE AUTO 0.13 K/mm3 (0.00-0.68); EOSINOPHILS PERCENT AUTO 2 % (0-6); Hematocrit 34.5 % (33.0-51.0); Hemoglobin 10.8 g/dL (11.5-16.0); IMMATURE GRAN ABSOLUTE AUTO 0.03 K/mm3 (0.00-0.10); IMMATURE GRAN PERCENT AUTO 1 % (0-1); LYMPHOCYTES ABSOLUTE AUTO 0.55 K/mm3 (0.84-5.20); LYMPHOCYTES PERCENT AUTO 10 % (21-46); MONOCYTES ABSOLUTE AUTO 0.57 K/mm3 (0.16-1.47); MONOCYTES PERCENT AUTO 10 % (4-13); Mean Corpuscular HGB 31.6 pg (26.0-34.0); Mean Corpuscular HGB Conc 31.3 g/dL (31.5-36.5); Mean Corpuscular Volume 101 fL (80-100); Mean Platelet Volume 10.7 fL (9.1-12.4); NEUTROPHILS ABSOLUTE AUTO 4.48 K/mm3 (1.96-9.15); NEUTROPHILS PERCENT AUTO 78 % (41-73); Platelet Count 117 K/mm3 (150-400); RDW Coefficient Variation 13.4 % (11.7-14.2); Red Blood Cell Count 3.42 M/mm3 (3.80-5.20); White Blood Cell Count 5.78 K/mm3 (4.00-11.30)
--- NOTE | 2019-01-09 03:35 | NUR ---
PRECEDEX PAUSED/PT TALKING MORE: PT GIVEN SEDATION VACATION AND IS OPENING EYES TO COMMAND BUT STATED, "NO" WHEN ASKED IF SHE COULD SEE THE NURSE. PT REPEATED, "HOSPITAL?" WHEN TOLD WHERE SHE WAS AT. PT STATED, "GOOD" WHEN TOLD THAT HER BIRDS WERE AT [employer] [facility]. PT GIVEN MORE WARM BLANKETS WHEN PT REPEATED, "I'M COLD" AND STATED, "THAT FEELS GOOD". PT STILL YELLS, "NO" WHENEVER HER HANDS OR LEGS ARE TOUCHED. UNNERVINGLY, PT YELLS, "ARSEN, DON'T LET HIM. DON'T LET HIM". PT CONSOLABLE WITH REASSURANCE OF BEING AT THE HOSPITAL AND IS WITH NURSES. PT AGAIN REPEATS, "HOSPITAL".
[2019-01-09 03:47] LABS: Albumin, Blood 2.3 g/dL (3.4-5.0); Anion Gap 4 mmol/L (6-16); Blood Urea Nitrogen 21 mg/dL (8-24); Bun/Creatinine Ratio 18.3 (12.0-20.0); CO2, Blood 26 mmol/L (21-32); Calcium, Blood 8.2 mg/dL (8.5-10.1); Chloride, Blood 114 mmol/L (98-108); Creatinine, Blood 1.15 mg/dL (0.40-1.00); Glomerular Filtration Rate 47 (60-); Glucose, Blood 126 mg/dL (70-99); Potassium, Blood 4.1 mmol/L (3.5-5.5); Sodium, Blood 144 mmol/L (136-145)
--- NOTE | 2019-01-09 03:47 | NUR ---
PANIC ATTACK: DURING LAST NOTE, PT BEGAN RAPID BREATHING AND YELLING FOR, "CT, ABRAHAM, IT'S COLD" AND "NO, NO, NO" WHEN THIS RN TRIED CONSOLING HER. PT, AT THIS TIME, NO LONGER CONSOLABLE. PRECEDEX RESTARTED AND PT RETURNED TO SEMI-PETERS'S POSITION. BED ON AUTO TURN FROM LEFT TO RIGHT. EXTEM X4 ELEVATED ON PILLOWS-HEELS FLOATED. WILL CONTINUE TO MONITOR.
--- NOTE | 2019-01-09 05:19 | NUR ---
RT AT BEDSIDE FOR DEEP SUCTIONING.
--- NOTE | 2019-01-09 05:20 | NUR ---
PRECEDEX TITRATED UP TO 0.5mcg/kg/hr OVER PAST HOUR. PT DID NOT TOLERATE DEEP SUCTIONING PER RT, HOWEVER THEY DID GET A SMALL AMOUNT OF THICK YELLOW SPUTUM.
--- NOTE | 2019-01-09 07:00 | NUR ---
ASSUMED CARE: PT IN BED AT THIS TIME, RT AND NIGHT NURSE AT BEDSIDE ATTEMPTING TO PERFORM ORAL CARE. PT RESISTING THIS. NIGHT RN STATES SHE TURNED PRECEDEX OFF TO HELP PT CLEAR SECRETIONS. BILATERAL WRIST RESTRAINTS STILL IN PLACE. NO FURTHER NEEDS A THIS TIME.
--- NOTE | 2019-01-09 07:13 | NUR ---
PT COUGHING: AT APPRX 0630, PT WITH NON-STOP COUGHING. ANNA RN TO BEDSIDE AND PROVIDED BREATHING TREATMENT AND WITH ASSIST USING BITE BLOCK ANNA RT ABLE TO DEEP SUCTION. THICK ABARCA SPUTUM AND GAN CHUNK-LIKE PIECES OUT THAT ACTUALLY CLOGGED THE YANKAUER. PT GIVEN BREAK AND RESUMED BREATHING TREATMENT. ANNA RT REMAINING AT BEDSIDE.
--- NOTE | 2019-01-09 07:16 | NUR ---
BEDSIDE REPORT TO ONCOMING IDA BALLESTEROS WHILE RT AT BEDSIDE. ALL QUESTIONS ANSWERED.
--- NOTE | 2019-01-09 07:17 | NUR ---
INFORMED ONCOMING RN THAT PRECEDEX IS CURRENTLY OFF SO PT CAN HAVE MORE PRODUCTIVE COUGHING. BILATERAL WRIST RESTRAINTS ON. VSS.
--- NOTE | 2019-01-09 08:19 | NUR ---
DR HERNANDEZ WAS AT BEDSIDE AND WITNESSED PT'S GASPING/STRIDOROUS BREATHING PATTERN. DISCUSSED CASE WITH HIM. DIETARY CONSULT PLACED AND MESSAGE LEFT WITH FLORENCE DRISCOLL FOR ETHICS CONSULT. BUDGET ENGINEER AWARE
--- NOTE | 2019-01-09 09:32 | NUR ---
PT HAS BEEN INCREASED TO 6L. PT CONTINUES TO GASP WITH RESPIRATIONS AND SATS AT MID 80S WITH NO IMPROVEMENT. DISCUSSED WITH DR RATLIFF, SEE NEW ORDERS
[2019-01-09 10:05] LABS: PCO2 Arterial 59.8 mmHg (35-45); PO2 Arterial 78.9 mmHg (80-100)
[2019-01-09 10:06] LABS: pH Blood Arterial 7.23 (7.35-7.45)
--- NOTE | 2019-01-09 10:37 | NUR ---
WHILE WAITING FOR BIPAP PLACEMENT, PT WAS PUT ON 15L NRB. RT ENTERED ROOM AND PUT PT ON BIPAP WITH SETTINGS 14/7 AND FIO2 100% TIDAL VOLUMES BELOW 250. ABG DONE WITH RESULTS RELAYED TO DR RATLIFF. DR RATLIFF ADJUSTED SETTINGS TO 18/8 WITH FIO2 100%. PT STILL LETHARGIC AND NOT HOLLERING AND RESISTING CARE LIKE SHE HAS BEEN. DRS WISH FOR MRI. CALL TO PT'S CAREGIVER TO GO OVER SCREENING FORM DUE TO PT BEING UNABLE TO ANSWER QUESTIONS. PT SATTING AT 96% WITH CURRENT BIPAP SETTINGS. REMAINS LETHARGIC AND NOT RESPONSIVE TO STAFF
--- NOTE | 2019-01-09 11:09 | NUR ---
PT TAKEN TO MRI WITH INDUSTRIAL ENERGY ENGINEER, RN, RT, AND TRANSPORTER
--- NOTE | 2019-01-09 11:16 | NUR ---
Ethics consult order processed. Case details discussed with palliative care office, and electronic chart notes reviewed. The principal is currently incapacitated and therefore unable to participate in substantive medical decision making. An enquiry was received by this ethicist as to whether or not it was legally permissible for the principals sister to engage in proxy clinical and treatment decision making in the absence of other viable and conventional alternatives. In confirmation to that effect I cite ORS 127.525 (f) and (g) which stipulates that an adult sibling, adult relative or adult friend of an incapacitated princical can function as a substitute medical decision maker, once the normal avenues of support in this respect have been reasonably exhausted, or are not sufficiently available. Thank you for this consult. Raoul Orozco DMin
[2019-01-09 11:31] LABS: Bilirubin, Direct <0.1 mg/dL (0.0-0.3); Bilirubin, Indirect Unable to Calculate mg/dL (0.1-0.7); Bilirubin, Total 0.6 mg/dL (0.1-1.0)
[2019-01-09 11:34] LABS: Lactate Dehydrogenase (Ld),Bld 300 U/L (100-240)
[2019-01-09 11:47] LABS: Base Excess Venous -1.7 mmol/L; Bicarbonate Venous 22.1 mmol/L (24.0-30.0); PCO2 Venous 59.4 mmHg (38-42); PO2 Venous 53.4 mmHg (38-42)
--- NOTE | 2019-01-09 11:48 | NUR ---
PT BACK FROM MRI. TEST UANBLE TO BE COMPLETED DUE TO PT BEING UNABLE TO IT IN MACHINE. Marilia SOFIA.
[2019-01-09 11:49] LABS: pH Blood Venous 7.24 (7.34-7.37)
--- NOTE | 2019-01-09 11:59 | NUR ---
VBG RESULT REVEALED MINIMAL CHANGE. DR RATLIFF TO ADJUST BIPAP SETTINGS.
--- NOTE | 2019-01-09 12:05 | NUR ---
DR RATLIFF ON PHONE WITH PT'S SISTER AT THIS TIME.
--- NOTE | 2019-01-09 13:22 | NUR ---
PT'S BIPAP SETTINGS AT 14/7 WITH 40% FIO2 PER RT. PT REMAINS LETHARGIC BUT DID MUMBLE WHEN MOVED FOR XRAY
[2019-01-09 15:31] LABS: Base Excess Venous 0.6 mmol/L; Bicarbonate Venous 23.7 mmol/L (24.0-30.0); PCO2 Venous 54.9 mmHg (38-42); PO2 Venous 39.4 mmHg (38-42)
--- NOTE | 2019-01-09 15:41 | NUR ---
PT'S SISTER AND BROTHER IN LAW CAME TO SEE PT AND WERE GIVEN UPDATE. ACCORDING TO [employer], ETHICS COMMITTEE DETERMINED THAT SISTER IS THE DECISION MAKER. NUMBERS EXCHANGED FOR UPDATES
--- NOTE | 2019-01-09 18:03 | NUR ---
CALL TO LAB TO DRAW VBG DUE TO POWER GLIDES NO LONGER DRAWING.
--- NOTE | 2019-01-09 18:38 | NUR ---
SHIFT SUMMARY: PT HAS BEEN ON BIPAP THIS SHIFT. CURRENT SETTINGS 16/04 WITH 35% FIO2. PT APPEARS MORE AWAKE AFTER BEING ON BIPAP MOST OF THE DAY. SHE IS SAYING A FEW WORDS REPEATEDLY WHEN STIMULATED. SISTER CAME TO SEE PT. PALLIATIVE CARE SPOKE WITH HER. PT REMAINS IN RESTRAINTS. NO FURTHER NEEDS AT THIS TIME
--- NOTE | 2019-01-09 19:15 | NUR ---
ASSUMED CARE OF PT PT OPENS EYES TO NAME AND REPEATS "DELLA" AFTER NURSE. PT STIFFENS WITH ANY PHYSICAL TOUCH AND STARTS CRYING "NO, NO, NO, IT HURTS". WHEN ASKED WHERE SHE HURTS PT IS UNABLE TO ANSWER. PT ALSO STATES SHE IS "COLD". PT CRIES WITH MOVEMENT, ESPECIALLY HER LEGS. WILL MEDICATE NEEDED. TEMP 99.9, COVERS REMOVED AND FAN IN PLACE. PT IS ON BIPAP14/7 30%. LUNGS CLEAR BILATERALLY WITH DIM BASES. OCCASIONAL WET BARKING COUGH NOTED. NG TUBE IN PLACE. JEVITY 1.2 RUNNING AT 25 ML/HR WITH 30 ML H20 FLUSH Q8 WITH GOAL RATE OF 50 ML/HR. <10 ML RESIDUALS AT BEGINNING OF SHIFT. POWERGLIDE IN LEI AND DANIEL SALINE LOCKED. DANIEL FLUSHES EASILY, LEI FLUSHES MORE SLOWLY DUE TO CREASE IN PT'S ARM PARTIALLY OCCLUDING LINE. MANN PATENT AND DRAINING. SEE FULL SHIFT ASSESSMENT.
[2019-01-09 19:26] LABS: PCO2 Arterial 51 mmHg (35-45); PO2 Arterial 116 mmHg (80-100); pH Blood Arterial 7.34 (7.35-7.45)
--- NOTE | 2019-01-09 19:53 | NUR ---
met with nurisng and physicians to review plan of care. met with family when they arrived to review her carea nd supportive care for them. They will be staying at her house.
--- NOTE | 2019-01-09 23:37 | NUR ---
MIDSHIFT ASSESSMENT PIVOTY 1.2 INCREASED TO 35 ML/HR <5ML RESIDUALS REINSTILLED. PT ATTEMPTING TO TALK, TOOK BIPAP MACHINE OFF TO HEAR HER BETTER, PT KEPT SAYING "REFRIGERATOR", I ASKED IF SHE WAS COLD AND SHE REPLIED "REFRIGERATOR". WHEN I SAY HER NAME TO GET HER ATTENTION SHE REPEATS "DELLA, DELLA??" IN A CHILD LIKE VOICE. PT COMPLIANT WITH LIFTING HER ARM SO THAT IT COULD BE ELEVATED BUT CONTINUES TO SAY "IT HURTS".
[2019-01-10 04:02] LABS: Bun/Creatinine Ratio 14.2 (12.0-20.0); Calcium, Blood 8.7 mg/dL (8.5-10.1); Creatinine, Blood 1.41 mg/dL (0.40-1.00); Magnesium, Blood 1.8 mg/dL (1.6-2.4); Phosphorus, Blood 2.7 mg/dL (2.5-4.9)
--- NOTE | 2019-01-10 06:02 | NUR ---
SHIFT SUMMARY NO ACUTE CHANGES OVERNIGHT. PT CONTINUES TO MOAN AND STIFFEN WITH REPOSITIONING AND/OR CATH CARE. PT TRIES TO HIT AND PUSH AWAY WHEN RESTRAINTS REMOVED. PERIOD OF HTN TREATED WITH LABETOLOL. LUNG SOUNDS CLEAR WITH MINIMAL COUGHING. JEVITY 1.2 RUNNING AT 35 ML/HR WITH MINIMAL RESIDUALS. PLEASE SEE PREVIOUS SHIFT NOTES. WILL REPORT TO DAYSHIFT NURSE.
--- NOTE | 2019-01-10 10:29 | NUR ---
INITIAL ASSESSMENT PATIENT IS RESTING IN BED MUMBLING TO HERSELF UPON ENTRY TO ROOM. BILATERAL WRIST RESTRAINTS IN PLACE PATIENT TRIES TO PULL AT IV LINES AND NG. PATIENT HAS A TEMPERATURE OF 100.8. PATIENT HAS MOIST, HARSH, OCCASIONAL COUGH. LUNG SOUNDS ARE CLEAR IN UPPER LOBES BUT DIM IN LOWER LOBES BILATERALLY. SHE IS SATTING 90% OR GREATER ON 4 L NC. HR ARE 60S TO 70S. BP WAS HTN AT START AT SHIFT, BUT IS NOW STABLE. ABDOMEN IS MILDLY DISTENDED WITH HYPOACTIVE BOWEL SOUNDS. TUBE FEEDING INFUSING AT GOAL RATE OF 50 ML/HR WITH 30ML WATER FLUSH EVERY 4 HOURS. 5 ML RESIDUAL OBTAINED AND REINSTILLED. MANN IS DRAINING DARK YELLOW URINE. PRECEDEX AT 0.2 MCG/KG/HR AND NS TKO. BRUISES NOTED T/O ENTIRE BODY. PATIENT DOESN'T APPEAR TO BE IN ANY PAIN AT THIS TIME, ONLY APPEARS TO HAVE PAIN WHILE BEING REPOSITIONED OR WHEN NURSING CARE IS PERFORMED. BED LOW. CALL LIGHT WITHIN REACH. WILL CONTINUE TO MONITOR THROUGHOUT SHIFT.
--- NOTE | 2019-01-10 11:23 | NUR ---
PATIENT WAS SOMEHOW ABLE TO REACH NG TUBE TO PULL IT OUT. RESTRAINTS WERE REPLACED AND TIGHTENED. NEW NG INSERTED INTO THE SAME NOSTRIL.
[2019-01-10 13:21] LABS: Base Excess Venous 5.6 mmol/L; Bicarbonate Venous 27.5 mmol/L (24.0-30.0); PCO2 Venous 57.4 mmHg (38-42); PO2 Venous 34.7 mmHg (38-42); pH Blood Venous 7.35 (7.34-7.37)
--- NOTE | 2019-01-10 13:44 | NUR ---
PATIENT IS RESTING QUIETLY IN BED. PATIENT IS AFEBRILE. NO SIGNS OF PAIN AT THIS TIME. PATIENT SATTING 90% OR GREATER ON BIPAP. /, 30% FIO2. HR IS 70S. PATIENT WAS GIVEN PRN HYPERTENSION MEDICATION. BP IS NOW STABLE WITH SBP IN THE 130S. NO OTHER ACUTE CHANGES TO NOTE ON AT THIS TIME. FAMILY IS AT BEDSIDE. BED LOW, CALL LIGHT IN REACH. WILL CONTINUE TO MONITOR.
--- NOTE | 2019-01-10 14:00 | NUR ---
Called to the ICU by pt's nurse to help explain code status and current care options to pt's sister Chio. Chio and her are here visiting from [place]. Pat had originally filled out a POLST for Shannan over the phone with a PC nurse last week. is asking to have discussion with Pat re: the possible use of a ventilator for respiratory support. Long discussion with Pat and her re: current code status and limited interventions and what that looks like in terms of care and resusitation. Explained full code and full treatment as well. Shannan has been recently placed back on a bipap. Chio and her both state that Shannan has never trusted doctors and that in fact she rarely went to the doctor. They both state that she would not want aggressive measure to extend her life. Discussed possible outcomes of recovery, decreased quality of life and . Pat stated "Shannan has always liked to be in control, she would not like this." Pat stated she would like to give Shannan a chance to recover but doesn't want any thing aggressive done. Chio confirmed her decision to continue with DNR/DNI and limited interventions at this time. Explained to Pat that if Shannan's condition worsens further discussions re: possible comfort care may need to take place. Chio reports that she spoke with her sister recently prior to her hospitalization and she stated that Shannan said "Abraham would be coming soon." PC will continue follow.
--- NOTE | 2019-01-10 16:37 | NUR ---
PATIENT IS RESTING QUIETLY IN BED AFTER PRN PAIN MEDICATION GIVEN FOR SIGNS OF PAIN. PATIENT IS AFEBRILE. PATIENT IS MORE LETHARGIC THIS AFTERNOON THAN THIS AM. PATIENT IS NO LONGER FOLLOWING SIMPLE COMMANDS. PATIENT REMAINS SATTING WELL ON THE SAME BIPAP SETTINGS. HR IS IN THE 70S TO 80S. BP IS STABLE AFTER PRN PAIN MEDICATION WAS GIVEN. BED BATH WAS GIVEN. NO OTHER ACUTE CHANGES TO NOTE ON AT THIS TIME. WILL CONTINUE TO MONITOR. BED LOW, CALL LIGHT WITHIN REACH.
--- NOTE | 2019-01-10 18:48 | NUR ---
SHIFT SUMMARY PATIENT HAS CONTINUED TO REST IN BED AND MUMBLE TO HERSELF T/O THE SHIFT. PATIENT RESPONDED TO SIMPLE COMMANDS THIS AM BUT IS NO LONGER RESPONDING TO THEM NOW. PATIENT MORE LETHARGIC IN AFTERNOON VERSUS MORNING. PATIENT IS AFEBRILE. PATIENT IS SATTING WELL ON BIPAP SETTINGS: 14/7 AT 30% FIO2. PATIENT SATTED WELL ON 2 L NC THIS AM FOR BREAK FROM BIPAP. PATIENT IS NSR WITH HR IN THE 70S TO 80S. PATIENT HAD PERIODS OF HTN THROUGHOUT THE SHIFT TREATED WITH PRN LABETALOL. PATIENT HAD A LOOSE, GREEN/BROWN STOOL TODAY. TUBE FEEDING INFUSING AT GOAL RATE OF 50 ML/HR WITH 30 ML WATER FLUSH EVERY 4 HOURS. MINIMAL RESIDUAL OBTAINED AND REINSTILLED. MANN IS DRAINING DARK YELLOW URINE. PRECEDEX IS CURRENTLY ON STANDBY. NS TKO. NO CHANGE IN SKIN THIS SHIFT. PATIENT RECEIVED A BED BATH TODAY. BED LOW. CALL LIGHT WITHIN REACH.
--- NOTE | 2019-01-10 19:41 | NUR ---
ASSUME CARE REPORT RECIEVED FROM OFF GOING RN LENARD. MONITOR INTACT SHOWING SINUS RHYTHM. HEART RATE 80'S. DOES NOT FOLLOW DIRECTIONS OR REQUESTS. LUNG SOUNDS CLEAR UPPER LOBES WITH DECREASED SOUNDS IN THE BASES. MOANS ON EXHALATION. BIPAP IN PLACE AT 14/7 WITH FIO2 OF 30%. ABDOMEN SOFT WITH BOWEL SOUNDS FOUR QUADS. MANN PATENT DRAINING RAMILA URINE. REMAINS IN SOFT WRIST RESTRAINTS TO PREVENT INADVERTENT REMOVAL OF LINES/TUBES. EXTREMITIES ELEVATED ON PILLOWS SECONDARY TO GENERALIZED DEPENDENT EDEMA. TUBE FEEDING INFUSING AT GOAL RATE OF 50ML/HR WITH NO RESIDUAL NOTED DURING ORAL CARE. MOANS AND SAYS "DELLA HULL MILLIE" " IT HURTS, IT HURTS" CONTINUE TO MONITOR AND REPORT CHANGE IN PATIENT CONDITION.
[2019-01-11 03:37] LABS: Bun/Creatinine Ratio 15.6 (12.0-20.0); Calcium, Blood 9.2 mg/dL (8.5-10.1); Creatinine, Blood 1.22 mg/dL (0.40-1.00); Magnesium, Blood 1.9 mg/dL (1.6-2.4); Phosphorus, Blood 2.4 mg/dL (2.5-4.9); Potassium, Blood 3.8 mmol/L (3.5-5.5)
--- NOTE | 2019-01-11 06:40 | NUR ---
SHIFT SUMMARY RESTS QUIETLY WHEN UNDISTURBED MONITOR INTACT SHOWING SINUS RHYTHN HEART RATE 70'S-80'S MUMBLES TO SELF LUNG SOUNDS CLEAR UPPER LOBES WITH DECREASED SOUNDS IN THE BASES. SPO2 94-97% WITH O2 IN PLACE AT 1L/MIN PER NASAL CANNULA. ABDOMEN SOFT TENDER WITH BOWEL SOUNDS HYPOACTIVE MANN PATENT DRAINING RAMILA URINE, GENERALIZED EDEMA TO EXTREMITIES. EXTREMITIES ELEVATED ON PILLOWS. CONTINUE TO MONITOR AND REPORT CHANGE IN PATIENT CONDITION. PRECEDEX GTT RESTATRTED AT 0400 AT 0.4MCG . MOVES SELF ABOUT IN THE BED. RE VERITO IN SOFT WRIST RESTRAINTS TO PREVENT INADVERTENT REMOVAL OF TUBES/LINES
--- NOTE | 2019-01-11 07:52 | NUR ---
ASSUMED CARE: REPORT RECEIVED FROM DANIELA Linares RN. ASSUMED CARE OF THIS PT AT APPROX 0700. ON ASSESSMENT, PT IS RESTING QUIETLY. WHEN THIS RN ENTERS THE ROOM TO COMPLETE CARE, THE PT BEGINS TO MOVE AROUND IN BED & MUMBLE TO SELF, APPEARING MORE ANXIOUS/AGITATED. SHE IS NOW RESTING QUIETLY AGAIN. O2 SATS > 92% ON 1L NC. BILAT SOFT WRIST RESTRAINTS REMAIN IN PLACE. MONITOR SHOWS NSR W/ HR 70s, OCC PAC's. JEVITY FORMULA FOR TF, WHICH IS INFUSING AT GOAL OF 50 ML/HR. WILL CONTINUE TO MONITOR & UPDATE NEEDED.
--- NOTE | 2019-01-11 13:31 | NUR ---
UPDATE: PT HAS REMOVED NGT. TF HAS BEEN PLACED ON HOLD. ADI Alba, PALLIATIVE CARE RN, AT BEDSIDE TO DISCUSS PLANS FOR CONTINUED CARE. SEE PALLIATIVE CARE NOTE. PT's SISTER, ADELA, WISHES TO HAVE THE NGT LEFT OUT UNTIL THE PT IS SEEN BY DR. TORO, HOPEFULLY TOMORROW. DR. CALLAHAN IS AGREEABLE TO THIS WHEN IT IS DISCUSSED & HE IS CURRENTLY IN THE ROOM DISCUSSING CARE W/ THE PT's FAMILY. WILL CONTINUE TO MONITOR & UDPATE NEEDED.
--- NOTE | 2019-01-11 13:45 | NUR ---
Requested by nursing to come speak with Shannan's sister Chio and her . Met with Chio and her in Shannan's room. Pat states that she and her were able to talk with Shannan's caregiver last evening and have been thinking about Shannan's care. Pat states Shannan's caregiver stated that Shannan has been mentioning going to be with Abraham and that she can have as many animals in heaven as she wants. Pat continues to want to give Shannan the best chance at recover however, she realizes that Shannan's current quality of life if she doesn't improve would be poor. Dr. Kelley has ordered an ID consult for pt and hopefully that will be done tomorrow. Chio is willing to have Dr. Mcgill come see Shannan to make sure that they have given her every opportunity to improve. Chio states after she speaks to Dr. Mcgill and gets his opinion she will make the decision to continue with treatments or to transition to comfort care. Comfort care explained and questions answered. Shannan pulled out her NGT after receiving her neb tx this afternoon. Chio requested that the NGT not be replaced at this time until she has a chance to talk with Dr. Mcgill. Pat doesn't want to cause Shannan any further discomfort if it isn't necessary. PC will continue to work with Shannan and her family for care planning. Shannan did not speak during my visit today. Her eyes remained closed. She did moan when staff repositioned her.
--- NOTE | 2019-01-11 17:02 | NUR ---
SHIFT SUMMARY: NO ACUTE CHANGES SINCE PRIOR UPDATES. PT IS NOW COMFORT CARE. THIS DECISION WAS MADE BY SISTER, ADELA, & HER AFTER SPEAKING AT LENGTH W/ DR. CALLAHAN. ORDERS HAVE BEEN PLACED REGARDING THIS. THE PT IS RESTING QUIETLY & SHOWING NO S/SX OF DISTRESS OR DISCOMFORT. WILL CONTINUE TO MONITOR & REPORT OFF TO ONCOMING RN.
--- NOTE | 2019-01-11 18:38 | NUR ---
DR. TORO: CALL TO DR. TORO's OFFICE HAS BEEN MADE & VOICEMAIL HAS BEEN LEFT REGARDING CANCELLING CONSULT THAT HAD BEEN PREVIOUSLY CALLED BY DR. CALLAHAN.
--- NOTE | 2019-01-11 20:38 | NUR ---
ASSUMING CARE AND PT TRANSFER. RECEIVED PT REPORT FROM ELPIDIO Mar RN. PT IS COMFORT CARE AT THIS TIME. PT IS DISORIENTED BUT IS BECOMING MORE RESPONSIVE WITH OCCASIONALLY APPROPRIATE RESPONSES. ASSUMED CARE OF PT AT THE TIME OF SHIFT REPORT. PT HAS MANN CATH IN PLACE, CURRENTLY PATENT AND DRAINING CLEAR YELLOW URINE. PT APPEARS TO BE COMFORTABLE AND IS IN NO APPARENT DISTRESS AT THIS TIME. PT IS TO BE TRANSFERED TO MEDICAL FLOOR ROOM 335. REPORT CALLED AND GIVEN TO CHARLOTTE Kilpatrick RN ON [facility]. ALL QUESTIONS ANSWERED AT THE TIME OF REPORT. PT TRANSFERED TO MEDICAL ROOM 335 BY SERGO CRANDALL VIA ICU BED. PT TRANSFERED WITH ALL BELONGINGS AT APPROX 2019.
--- NOTE | 2019-01-12 17:18 | NUR ---
SHIFT SUMMARY PT HAS BEEN RESTING A LOT OF THE SHIFT. PT DOES BECOME MORE RESTLESS WHEN VISITORS IN ROOM AND WHEN STAFF TALKING WITH HER. MEDICATED FOR PAIN X1 THIS SHIFT AND PT SLEPT AFTER. NO MOANING OR GRIMACING NOTED AT THIS TIME. NO ACUTE CHANGES THIS SHIFT. WILL CONTINUE TO MONTIOR AND REPORT TO ONCOMING RN.
--- NOTE | 2019-01-13 05:40 | NUR ---
AUTO BRAKE MECHANIC SUMMARY NO ACUTE CHANGES THIS SHIFT. PT REMAINS ON COMFORT CARE MEASURES. TURNED AND CHANGED Q2H. PT NON VERBAL FOR THE MOST PART ASIDE FROM THE OCCASIONAL 1 WORD RESPONSE. PT IN NO APPARENT DISTRESS OR PAIN. RESTS COMFORTABLY. WILL CONTINUE TO MONITOR.
--- NOTE | 2019-01-13 07:53 | NUR ---
TURNED, MEDICATED FOR GRUNTING SOUNDS, SPONGED MOUTH OUT. BRUISES T/O. CONTINUE TO MONITOR.
--- NOTE | 2019-01-13 19:10 | NUR ---
COMFORT CARE. TURNED Q 2 HOURS. BRUISING T/O. MANN TO GRAVITY. MEDICATED FOR SECRETIONS AND PAIN W/GOOD RESULTS. WHEN DOING ORAL CARE WILL SAY "WATER"; OTHERWISE, SAYS "YES" VERY INFREQUENTLY. REPORT TO NIGHT RN
--- NOTE | 2019-01-14 05:09 | NUR ---
SHIFT SUMMARY PT RESTED WELL AFTER BEING MEDICATED WITH ROXANOL, PT HAD BEEN RESTLESS AND MOANING. WILL CONTINUE TO MONITOR.
--- NOTE | 2019-01-14 15:46 | NUR ---
CHEST PAIN PT REPORTED CP @ 1540- DESCRIBED IT "MILD W/PAIN DOWN L SIDE" VS TAKEN, NO EVENTS NOTED ON TELE (NS @ 71 REPORTEED BY TAKE OFF MAN), PAIN SUBSIDED W/IN MINUTES, PT REPORTED FEELING COLD THI OCCURED, COVERED W/WARM BLANKET, PT STATES PAIN HAS GONE BY 1545.
--- NOTE | 2019-01-14 16:42 | NUR ---
SHIFT SUMMARY NO ACUTE CHANGES THIS SHIFT, A&O THIS AM, APPROPIATE W/VISITOR AT BEDSIDE URING SHIFT, HAS SLEPT SINCE VISITOR LEFT. SISTER (PAT) CALLED FOR UPDATE, PT WAS SLEEPING, UPDATE GIVEN. PT APPERS TO BE SLEEPING COMFORTABLY AT THIS TIME, WILL CONT TO MONITOR UNTIL REPORT GIVEN TO ETHAN RN.
--- NOTE | 2019-01-14 20:56 | NUR ---
PT HAS AIR HUNGER, MAKING MOANING NOISES. RESPIRATIONS INCREASED WITH PAUSES. CALLED PT'S NEXT OF KIN ADELA TO UPDATE ON PT STATUS. ADELA IS ON HER WAY INTO HOSPITAL.
--- NOTE | 2019-01-14 21:46 | NUR ---
PATIENTS SISTER ADELA AND HER IN ROOM WITH PATIENT. THEY ASKED THAT WE WOULD UPDATE THE PT'S CAREGIVER. CAREGIVER CALLED AND WAS UPDATED ON PT STATUS. FAMILY SITTING AT BEDSIDE. REFRESHMENTS OFFERED TO FAMILY. PT STILL GASPING FOR AIR WITH INTERMITTEN PERIODS OF APNEA AND SHALLOW BREATHING.
--- NOTE | 2019-01-15 00:18 | NUR ---
THIS RN HAD A LONG DISCUSSION WITH SISTER ADELA AND HER ABOUT PT'S STATUS. FAMILY ASKED WHAT TO EXPECT WITH HER BREATHING PATTERNS. THEY EXPRESSED CONCERNS ABOUT NOT FINANCIALLY BEING ABLE TO AFFORD A SERVICE. THEY ASKED WHO WOULD TAKE THE PATIENT'S BODY. THEY STATED THEY WOULD LIKE HER TO BE CREMATED BUT WERE UNABLE TO PAY FOR IT. THEY LIVE OUT OF STATE AND ARE CURRENTLY STAYING AT THE PATIENT'S APARTMENT IN [place]. THIS RN SPOKE WITH LUCRECIA Ortiz CHARGE NURSE TO RECIEVE ANSWERS ABOUT WHAT WILL HAPPEN WHEN THE PATIENT PASSES SINCE THEY DO NOT HAVE A HOME IN [place]. LUCRECIA REPORTED THAT IN THAT CASE THE HOME THAT IS AVAILABLE WILL COME TO PICK PATIENT UP AND THEN CONTACT THE FAMILY IN THE AM FOR DETAILS. THIS INFORMATION WAS PASSED ALONG TO THE FAMILY. THEY WERE ALSO INFORMED THAT THE [facility] HELPS PAY FOR CREMATION IF FAMILY IS UNABLE TO DO SO. THE FAMILY ASKED IF THEY SHOULD STAY WITH THE PATIENT TONIGHT, THIS RN STATED THAT THEY WERE MORE THAN WELCOME TO STAY AND WE WOULD PROVIDE RECLINERS FOR THEM TO SLEEP IN. FAMILY IS GOING TO STAY WITH PATIENT.
--- NOTE | 2019-01-15 06:07 | NUR ---
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 NEITHER THE ROXANOL OR ATIVAN SEEM TO GIVE MUCH RELIEF. PATIENT'S RESPIRATIONS SEEM TO BE LABORED AT TIMES WITH APENIC PERIODS. EXTREMITIES WARM TO TOUCH. PT MOANS WITH BREATHS. SECRETIONS NOTED, ATROPINE DROPS GIVEN ORDERED, BREATHING STILL HAS A RATTLE NOISE TO IT THIS AM. PATIENTS RADIAL PULSE IS FAINT THIS AM WHEREAS IT WAS STRONG LAST NIGHT. FAMILY STILL AT BEDSIDE. FAMILY UNDERSTANDS THAT SHE WILL LIKELY PASS SOONER THAN LATER. THEY WOULD LIKE THE [facility] TO COME WHEN THAT HAPPENS AND FOR THE LOCAL MORTUARY SERVICE TO COME AND PICK PATIENT UP. THEY STATE THEY FEEL THEY'VE SAID THEIR PRAYERS TO THE PT AND ARE SAD BUT UNDERSTAND THIS IS A PART OF LIFE. FAMILY IS CURRENTLY AT BEDSIDE, PRAYING AND SINGING TO PATIENT.
== END 2019-01-15 06:45 | DRG 871 ==
LOC: ER 16:30 → ICUW 21:01 → ICUE 21:01 → MEDS 01-11 20:23 → ENPENDDIS 01-15 08:27
PROVIDERS: Emergency Medicine; Hospitalist; Internal Medicine Critical Care Medicine; Internal Medicine Pulmonary Disease; ADMIT Internal Medicine
PROC: 009U3ZX Drainage of Spinal Canal, Percutaneous Approach, Diagnostic (ICD-10-PCS; principal; 2019-01-08)
PROC: 5A09357 Assistance with Respiratory Ventilation, Less than 24 Consecutive Hours, Continuous Positive Airway Pressure (ICD-10-PCS; 2019-01-09)
DX: A41.9 Sepsis, unspecified organism (principal); R65.21 Severe sepsis with septic shock; G93.41 Metabolic encephalopathy; J96.02 Acute respiratory failure with hypercapnia; J96.01 Acute respiratory failure with hypoxia; J69.0 Pneumonitis due to inhalation of food and vomit; Z68.41 Body mass index [BMI] 40.0-44.9, adult; I67.9 Cerebrovascular disease, unspecified; Z51.5 Encounter for palliative care; E66.01 Morbid (severe) obesity due to excess calories; I12.9 Hypertensive chronic kidney disease with stage 1 through stage 4 chronic kidney disease, or unspecified chronic kidney disease; N18.3 Chronic kidney disease, stage 3 (moderate); Z66 Do not resuscitate; I48.2 Chronic atrial fibrillation; Z79.01 Long term (current) use of anticoagulants; I34.0 Nonrheumatic mitral (valve) insufficiency; I27.21 Secondary pulmonary arterial hypertension; I48.0 Paroxysmal atrial fibrillation
CPT/HCPCS: 36415; 36600; 51702; 62270; 70450; 70496; 70498; 71045; 71260; 76705; 80048; 80053; 80069; 80202; 81001; 82140; 82247; 82248; 82274; 82607; 82746; 82803; 82945; 82947; 83605; 83615; 83735; 83880; 84100; 84145; 84157; 84443; 84478; 84484; 85025; 85027; 85651; 86140; 87040; 87070; 87205; 87324; 87483; 87486; 87493; 87581; 87633; 87798; 87804; 88108; 89051; 93005; 93010; 93306; 94640; 94660; 94667; 95819; 96361-59; 96365-59; 96372-59; 99152; 99285-25; C1729; C1751; G0480; J0290; J0456; J0696; J1650; J1940; J1956; J2060; J3010; J3370; J3480; J7030; J7050; J7070; Q9967